=== PATIENT | male | born 1955 | race Caucasian/White ===

== ENCOUNTER 2017-03-05 18:02 | Emergency (ER) | payer SELFPAY ==
[~2017-03-05] VITALS: Ht 165.1 cm; Wt 100.0 kg
[2017-03-05 18:35] VITALS: BP 136/93
== END 2017-03-05 19:54 | disposition left against medical advice (07) ==
LOC: EMS 18:05
DX: M25.512 Pain in left shoulder (principal); W17.89XA Other fall from one level to another, initial encounter; Y93.89 Activity, other specified; Y92.89 Other specified places as the place of occurrence of the external cause; Y99.8 Other external cause status
CPT/HCPCS: 99283